=== PATIENT | female | born 1990 | race Caucasian/White ===

== ENCOUNTER 2016-04-01 00:29 | Observation (INO) | payer OTHER, MEDICAID ==
[2016-04-01] MEDS ORDERED: LACTATED RINGERS 1,000 ML ONE ×2 (01:39→03:07)
[2016-04-01 01:59] LABS: ABSOLUTE NEUTROPHIL COUNT 12.5 K/mm3 (1.8-7.7); BASO # 0.1 K/mm3 (0.0-0.2); BASO % 0.4 % (0.2-1.0); EOS # 0.1 (0.0-0.5); EOS % 0.6 % (0.9-2.9); HEMATOCRIT 48.8 % (37.0-47.0); HEMOGLOBIN 15.9 gm/l (12.0-16.0); IMM NEUT # 0.1 K/mm3 (0-0.2); IMM NEUT% 0.6 % (0-1); LYMPH % 12.7 % (15-45); MEAN CORPUSCULAR HEMOGLOBIN 29.3 pg (27.0-31.0); MEAN CORPUSCULAR HGB CONC 32.6 g/dl (33.0-37.0); MONO # 1.2 (0.0-0.8); MONO % 7.7 % (4-12); PLATELET COUNT 294 K/mm3 (130-400); RED CELL DISTRIBUTION WIDTH 13.5 % (11.5-14.5)
[2016-04-01 02:01] LABS: URINE BILIRUBIN NEGATIVE (NEGATIVE); URINE BLOOD NEGATIVE (NEGATIVE); URINE GLUCOSE (UA) NEGATIVE (NEGATIVE); URINE LEUKOCYTE ESTERASE NEGATIVE (NEGATIVE); URINE NITRITE NEGATIVE (NEGATIVE); URINE PROTEIN NEGATIVE (NEGATIVE); URINE UROBILINOGEN NORMAL (0-1 mg/dl)
[2016-04-01 02:02] LABS: URINE APPEARANCE CLEAR; URINE COLOR YELLOW
[2016-04-01 02:13] LABS: ALB/GLOB RATIO 1.1 (>1.0); ALBUMIN 4.3 gm/dL (3.5-5.7); CALCIUM 9.3 mg/dL (8.6-10.3)
[2016-04-01] MEDS ORDERED: ACETAMINOPHEN 500 MG TABLET ONE (06:35)
[2016-04-01 07:39] VITALS: BMI 24.7
[2016-04-01] MEDS ORDERED: SODIUM CHLORIDE 0.9% 1,000 ML IV SCH (08:07)
[2016-04-01] MEDS ORDERED: BISACODYL 5 MG TABLET.EC PO PRN (08:08)
[2016-04-01] MEDS ORDERED: MENTHOL/CETYLPYRD 1 EACH LOZENGE PO PRN (08:08)
[2016-04-01] MEDS ORDERED: BISACODYL 10 MG SUP PR PRN (08:08)
[2016-04-01] MEDS ORDERED: ACETAMINOPHEN 325 MG TABLET PO PRN (08:08)
[2016-04-01] MEDS ORDERED: BLISTEX LIPSTICK 1 EACH TP PRN (08:08)
[2016-04-01] MEDS ORDERED: MAGNESIUM HYDROXIDE 30 ML UDCUP PO PRN (08:08)
[2016-04-01] MEDS ORDERED: SODIUM CHLORIDE 0.9% 100 ML IV PRN (08:08)
--- NOTE | 2016-04-01 08:58 | HP ---
BERNARD RIZO [id number] : 1990 DATE OF ADMISSION: April 01, 2016 IDENTIFICATION: Ms. Rizo is a 26-year-old previously followed by Dr. Kenny at [facility]. She has been reassigned but has not seen her new doctor yet. CHIEF COMPLAINT: Ms. Rizo presents with a two to three day history of sore throat, nasal drainage, and fever. She has had body aches and headache, cough, some dyspnea on exertion, and palpitations. She was evaluated in the emergency department and found positive for influenza A. She was given two liters of IV fluids but continued to have relative tachycardia, so is referred to the hospitalist service. She does not have any chest pain. She did just fly to [place] and back for an embryonic transfer for surrogacy but has not had any swelling or pain in her legs and was not hypoxemic in the emergency department. REVIEW OF SYSTEMS: HEENT: Headache, rhinorrhea, sore throat. RESPIRATORY: Cough with some green sputum. No dyspnea except with exertion. CARDIAC: Palpitations. No chest pain. GASTROINTESTINAL: She has had some nausea and dyspepsia, no vomiting. She reports constipation. GENITOURINARY: No dysuria. Last menstrual period was March 08, 2016 and as above, she just underwent embryonic transfer. MUSCULOSKELETAL: Generalized aches. CONSTITUTIONAL: Fever and chills. PAST MEDICAL HISTORY: 1. She is 5, para 1, with a normal vaginal delivery in 2012. 2. No chronic medical conditions. PAST SURGICAL HISTORY: 1. Appendectomy in 2009. 2. [place] teeth extracted in 2011. MEDICATIONS: She is taking Delestrogen and progesterone as well as vitamins with folate. ALLERGIES: Reported to: 1. IODINE. 2. LATEX. 3. SESAME OIL. HABITS: No tobacco, alcohol or drugs. SOCIAL HISTORY: Lives with her and [id number] daughter in [place]. As above, she is serving as a surrogate. FAMILY HISTORY: Mother has heart disease. PHYSICAL EXAMINATION: GENERAL: This is a well appearing young woman. VITAL SIGNS: Temperature 99.9 degrees Fahrenheit, pulse initially was 138 came down to 109 in the emergency department, respiratory rate 16 to 18, blood pressure 111/70, oxygen saturation 97 to 99% on room air. HEENT: Pupils are equal, round and reactive. Extraocular muscles are intact. Oropharynx is moist. Dentition in good condition. There is no pharyngitis. NECK: Supple, no adenopathy. CHEST: Clear to auscultation. HEART: Is regular, 2/6 systolic murmur. ABDOMEN: Is soft, nontender, normal bowel tones. No organomegaly. EXTREMITIES: Good peripheral pulses. No cyanosis, clubbing or edema. No calf tenderness, negative Tori's sign. NEUROLOGIC: Alert and oriented, no focal deficits. LABORATORY DATA: White blood cell count 16.0 with 78% neutrophils, hemoglobin and hematocrit 15.9 and 48.8, platelets 294. D-dimer normal at 0.4, lactate 1.1, sodium 135, potassium 4.1, chloride 99, CO2 23, BUN 6, creatinine 0.6, glucose 108. TSH is 1.16. Beta HCG quantitative 29. Urinalysis is negative. Influenza A is positive. Group A strep is negative. ASSESSMENT: Ms. Rizo is a 26-year-old with acute influenza A and tachycardia. She has very early . PLAN: 1. Refer to observation. 2. Treatment with oseltamivir. 3. Continue hydration and recheck vital signs. 4. Pulmonary embolism is essentially ruled out with normal D-dimer. 5. She is ambulatory and young and venous thrombosis risk is low. 6. FULL CODE status. 7. Anticipate resolution of the tachycardia with hydration and discharge later today.
[2016-04-01] MEDS ORDERED: DOCUSATE SODIUM 100 MG CAPSULE PO SCH (09:00)
[2016-04-01] MEDS ORDERED: PUMP TUBING ONE (09:33)
[2016-04-01] MEDS: Oseltamivir Phosphate 75 MG CAP PO SCH ×2 (09:41→13:52)
[2016-04-01 11:47] VITALS: BP 118/79
[2016-04-01] MEDS ORDERED: ONDANSETRON 4 MG ODT TAB PO PRN (11:54)
[2016-04-01 12:18] LABS: HEMATOCRIT 43.9 % (37.0-47.0); HEMOGLOBIN 14.3 gm/l (12.0-16.0); MEAN CELL VOLUME 91.1 fl (81.0-99.0); MEAN CORPUSCULAR HEMOGLOBIN 29.7 pg (27.0-31.0); MEAN CORPUSCULAR HGB CONC 32.6 g/dl (33.0-37.0); RED CELL DISTRIBUTION WIDTH 13.5 % (11.5-14.5)
== END 2016-04-01 14:13 | disposition home or self-care (01) ==
LOC: ED 00:29 → MS 07:13
PROVIDERS: ADMIT Family Medicine; ATTEND Family Medicine
DX: O99.611 Diseases of the digestive system complicating pregnancy, first trimester (principal); J09.X2 Influenza due to identified novel influenza A virus with other respiratory manifestations
CPT/HCPCS: 83605; 85379; 84702; 85027; 85025; 87040; 80053; 81003; 87880; 84443; 36415; 87804; 93005; A9270 ×6; J7120 ×2; J7030